=== PATIENT | female | born 1950 | race Caucasian/White ===

== ENCOUNTER → 2016-12-30 | Outpatient (CLI) | payer MEDICARE, BC ==
[~2016-12-30] MED LIST: ASPI-557 PO; ESCI20TA PO; INSU100V28 SQ; LOSA100T44 PO; NITR100C4 PO; PHEN-779 PO
[2016-12-30 15:33] LABS: BLOOD, URINE 1+ (NEGATIVE); COLOR,URINE YELLOW (YELLOW); LEUKOCYTE ESTERASE ,URINE NEGATIVE (NEGATIVE); NITRITE,URINE NEGATIVE (NEGATIVE); UROBILINOGEN,URINE 0.2 EU/DL (NORMAL)
[2016-12-30 15:40] LABS: SQUAMOUS EPITHELIAL CELL,UR 0-5
[2016-12-30 16:05] LABS: WBC CLUMPS,URINE FEW; WBC,URINE 30-50 /HPF (0-5)
[2016-12-30 16:06] LABS: BACTERIA,URINE 1+ (NEGATIVE)
== END ==
LOC: LAB 15:16
PROVIDERS: ATTEND Family Medicine
DX: R30.0 Dysuria (principal)
CPT/HCPCS: 81001; 87086; 87088; 87186

== ENCOUNTER → 2017-01-22 | Outpatient (CLI) | payer MEDICARE, BC | LOC: WC.BC 13:46 | DX: Z12.31 Encounter for screening mammogram for malignant neoplasm of breast (principal) | CPT/HCPCS: 77063; G0202 ==